=== PATIENT | female | born 1975 | race Caucasian/White ===

== ENCOUNTER 2019-08-31 20:04 | Emergency (ER) | payer OTHER ==
[~2019-08-31] VITALS: Ht 180.3 cm; Wt 63.5 kg
[2019-08-31] MEDS ORDERED: SKELAXIN800 MG PO (23:39)
[2019-08-31] MEDS ORDERED: VOLTAREN-XR100 MG PO (23:39)
[2019-08-31] MEDS ORDERED: ACETAMINOPHEN500 M1 (23:59)
== END 2019-08-31 23:30 | disposition home or self-care (01) ==
LOC: ER 20:04
DX: R55 Syncope and collapse (principal); M54.2 Cervicalgia; M62.838 Other muscle spasm; Z03.818 Encounter for observation for suspected exposure to other biological agents ruled out

== ENCOUNTER 2020-05-09 21:29 | Emergency (ER) | payer OTHER ==
[~2020-05-09] VITALS: Ht 180.3 cm; Wt 63.0 kg
[~2020-05-09 21:29] MED LIST: ACETAMINOPHEN500 M1; SKELAXIN800 MG PO; VOLTAREN-XR100 MG PO
== END 2020-05-10 13:40 | disposition home or self-care (01) ==
LOC: ER 21:29
DX: N13.5 Crossing vessel and stricture of ureter without hydronephrosis (principal); R31.0 Gross hematuria; R10.11 Right upper quadrant pain; R11.2 Nausea with vomiting, unspecified; Z03.818 Encounter for observation for suspected exposure to other biological agents ruled out

== ENCOUNTER 2020-11-25 11:15 | Outpatient (CLI) | payer OTHER | END 2020-11-25 11:30 | disposition home or self-care (01) | LOC: PPH VACUNA 11:15 | PROVIDERS: ATTEND Emergency Medicine Pediatric Emergency Medicine | DX: Z23 Encounter for immunization (principal) ==

== ENCOUNTER 2021-10-31 12:55 | Outpatient (CLI) | payer OTHER | END 2021-10-31 13:04 | disposition home or self-care (01) | LOC: MAMO-SONO 12:55 | PROVIDERS: ATTEND Obstetrics & Gynecology | DX: N63.0 Unspecified lump in unspecified breast (principal); N64.4 Mastodynia ==

== ENCOUNTER 2022-06-06 17:56 | Inpatient (IN) | payer OTHER ==
[~2022-06-06] VITALS: Ht 180.3 cm; Wt 64.9 kg
== END 2022-06-09 14:03 | disposition home or self-care (01) | DRG 690 ==
LOC: ER 17:56 → MEDI 22:53 → MEDJ 06-07 00:07
PROVIDERS: ADMIT Specialist; ATTEND Specialist
PROC: BW21ZZZ Computerized Tomography (CT Scan) of Abdomen and Pelvis (ICD-10-PCS; principal; 2022-06-06)
PROC: BW21YZZ Computerized Tomography (CT Scan) of Abdomen and Pelvis using Other Contrast (ICD-10-PCS; 2022-06-08)
DX: N13.5 Crossing vessel and stricture of ureter without hydronephrosis (principal); N39.0 Urinary tract infection, site not specified; R31.0 Gross hematuria; B96.29 Other Escherichia coli [E. coli] as the cause of diseases classified elsewhere